=== PATIENT | male | born 1965 | race Caucasian/White ===

== ENCOUNTER 2017-11-03 20:31 | Emergency (ER) | payer SELFPAY ==
[2017-11-03] MEDS ORDERED: DIPHENHYDRAMINE HCL 50 MG/ML VIAL ONE (20:52)
[2017-11-03] MEDS ORDERED: MIDAZOLAM 2 MG/2 ML INJ ONE (20:53)
[2017-11-03] MEDS ORDERED: HALOPERIDOL LACTATE INJ 5 MG/1 ML VIAL ONE (20:53)
[2017-11-03] MEDS ORDERED: DIPHENHYDRAMINE HCL 50 MG/ML VIAL IM ONE (20:56)
[2017-11-03] MEDS ORDERED: HALOPERIDOL LACTATE INJ 5 MG/1 ML VIAL IM ONE (20:56)
[2017-11-03] MEDS ORDERED: MIDAZOLAM 2 MG/2 ML INJ IM ONE (20:56)
--- NOTE | 2017-11-03 21:00 | ER Document Report ---
ED General - General Chief Complaint: Insect Bite Stated Complaint: BUG BITES Time Seen by Provider: 11/03/17 20:48 Cannot obtain history due to: Mentally challenged, Uncooperative Notes: Patient is a 51-year-old male who initially presented with concerns of bug bites but is noted to be extraordinarily paranoid in triage. The patient will not speak to me, is pacing back and forth, tries to lock himself in the bathroom repeatedly. No further history can be obtained. Per records he does have a history of schizophrenia. TRAVEL OUTSIDE OF THE [place] IN LAST 30 DAYS: No Past Medical History - General Information source: Patient Cannot obtain history due to: Mentally challenged, Altered mental status - Social History Smoking Status: Unknown if Ever Smoked Family History: Reviewed & Not Pertinent Review of Systems - Review of Systems -: Yes ROS unobtainable due to patient's medical condition Physical Exam - Vital signs Vitals: Temp Pulse Resp BP Pulse Ox 97.8 F 137 H 24 H 140/91 H 96 11/03/17 20:51 11/03/17 20:51 11/03/17 20:51 11/03/17 20:51 11/03/17 20:51 Interpretation: Hypertensive, Tachycardic Notes: PHYSICAL EXAMINATION: GENERAL: Agitated, pacing, responding to internal stimuli HEAD: Atraumatic, normocephalic. EYES: Pupils equal round and reactive to light, extraocular movements intact, sclera anicteric, conjunctiva are normal. ENT: nares patent, oropharynx clear without exudates. Moderately dry mucous membranes. NECK: Normal range of motion LUNGS: Breath sounds clear to auscultation bilaterally and equal. No wheezes rales or rhonchi. HEART: Regular tachycardia without murmurs ABDOMEN: Soft, nontender EXTREMITIES: no pitting or edema. No cyanosis. NEUROLOGICAL: No focal neurological deficits. Moves all extremities spontaneously PSYCH: Agitated, pacing, picking at himself, clearly responding to internal stimuli SKIN: Warm, mildly diaphoretic, scabbed and open sores from apparently the patient digging at himself Course - Re-evaluation Re-evalutation: 11/03/17 20:56 Patient presents extremely paranoid, somewhat agitated, had to repeatedly be requested to come out of the bathroom where he found him taking in his skin scratching at his face vigorously, unable to be redirected. The patient is clearly is responding to internal stimuli, has obvious paranoid delusions. He is currently a risk to himself and others. I was unable to convince the patient to even return to his room. Unfortunately he will require restraints that we can administer appropriate medications including haloperidol, Versed and Benadryl to calm him and provide safety to both the patient and our staff. An involuntary commitment has been completed. Will obtain standard medical screening labs. Will reassess after sedation medications have been administered. 11/04/17 03:07 Patient has been resting comfortably. Medical screening labs unremarkable. Patient is medically cleared for evaluation and disposition by psychiatry in the morning. - Vital Signs Vital signs: Temp Pulse Resp BP Pulse Ox 97.8 F 137 H 24 H 140/91 H 96 11/03/17 20:51 11/03/17 20:51 11/03/17 20:51 11/03/17 20:51 11/03/17 20:51 - Laboratory Result Diagrams: 11/03/17 22:45 11/03/17 22:45 Laboratory results interpreted by me: 11/03/17 11/03/17 22:45 22:45 WBC 14.8 H Absolute Neutrophils 9.6 H Absolute Monocytes 1.5 H Creatinine 1.27 H Creatine Kinase 774 H Total Protein 8.4 H Salicylates < 1.0 L Acetaminophen < 10 L - EKG Interpretation by Me Additional EKG results interpreted by me: 11/04/17 03:08 Sinus rhythm. Rate 98. No ST elevations or depressions. QTC is 450. Discharge - Discharge Clinical Impression: Paranoid delusion, Agitation Psychosis Qualifiers: Psychosis type: unspecified psychosis type Qualified Code(s): F29 - Unspecified psychosis not due to a substance or known physiological condition Condition: Fair
[2017-11-03 23:10] LABS: ABSOLUTE BASOPHILS # (AUTO) 0.1 10^3/uL (0.0-0.2); ABSOLUTE LYMPHOCYTES (AUTO) 3.6 10^3/uL (0.5-4.7); ABSOLUTE MONOCYTES (AUTO) 1.5 10^3/uL (0.1-1.4); ABSOLUTE NEUT (AUTO) 9.6 10^3/uL (1.7-8.2); BASOPHILS % (AUTO) 0.4 % (0-2); EOSINOPHILS % (AUTO) 0.1 % (0-6); HEMATOCRIT 47.1 % (37.9-51.0); HEMOGLOBIN 15.8 g/dL (13.5-17.0); LYMPHOCYTES % (AUTO) 24.6 % (13-45); MEAN CORPUSCULAR HEMOGLOBIN 28.7 pg (27.0-33.4); MEAN CORPUSCULAR HGB CONC 33.6 g/dL (32.0-36.0); MEAN CORPUSCULAR VOLUME 85 fl (80-97); MONOCYTES % (AUTO) 10.4 % (3-13); PLATELET COUNT 376 10^3/uL (150-450); RED BLOOD COUNT 5.52 10^6/uL (4.35-5.55); RED CELL DISTRIBUTION WIDTH 13.2 % (11.5-14.0); SEGMENTED NEUTROPHILS % (AUTO) 64.5 % (42-78); TOTAL CELLS COUNTED % (AUTO) 100 %; WHITE BLOOD COUNT 14.8 10^3/uL (4.0-10.5)
[2017-11-03 23:16] LABS: ALANINE AMINOTRANSFERASE 50 U/L (21-72); ALKALINE PHOSPHATASE 81 U/L (38-126); ANION GAP 13 (5-19); ASPARTATE AMINO TRANSFERASE 54 U/L (17-59); BILIRUBIN,DIRECT 0.4 mg/dL (0.0-0.4); BLOOD UREA NITROGEN 20 mg/dL (7-20); CALCIUM 9.8 mg/dL (8.4-10.2); CARBON DIOXIDE 26 mmol/L (22-30); CHLORIDE 102 mmol/L (98-107); CREATINE KINASE 774 U/L (55-170); GLUCOSE 81 mg/dL (75-110); SODIUM 141.4 mmol/L (137-145); TOTAL PROTEIN 8.4 g/dL (6.3-8.2)
[2017-11-03 23:17] LABS: ACETAMINOPHEN < 10 ug/mL (10-30); ALCOHOL < 10 mg/dL (NONE DETECTED); SALICYLATE < 1.0 mg/dL (2.0-20.0)
--- NOTE | 2017-11-04 06:54 | EKG REPORT ---
SEVERITY:- NORMAL ECG - SINUS RHYTHM : Confirmed by: Yamilet Heath MD 04-Nov-2017 06:53:45
--- NOTE | 2017-11-04 13:18 | PSYCHOLOGICAL NOTE ---
Psych Note - Psych Note Psych Note: Reason for Consult: psychosis;paranoid Patient is a 51-year-old male who initially presented with concerns of bug bites but is noted to be extraordinarily paranoid in triage. The patient will not speak to me, is pacing back and forth, tries to lock himself in the bathroom repeatedly. No further history can be obtained. Per records he does have a history of schizophrenia. Patient disclosed he called EMS because he was "stressed out." He denies suicidal ideation currently but states that he does suffer from passive suicidal ideation "on and off... but not today." He continued to report that he was diagnosed with schizophrenia in [place] 2-1/2 years ago. He disclosed that he does have substance abuse history with heroin but denies using for the last 8 years. When describing the patient's symptoms of schizophrenia he states he suffers from auditory hallucinations of "just one voice" that he does not recognizes that changes between male and female that he hears inside his head. He reports that he hears his voice sporadically in the last time was yesterday. He reports that he lives in [place] and is here visiting a friend currently. He states that he forgot his medications in [place] and disclosed that he takes Thorazine. Patient reports his outpatient mental health provider is [facility] in [place]. He reports he plans to go back home (to [place]) after being discharged today. Behavior health team contacted patient's pharmacy in [place]. Is noted patient disclosed going to [facility] however right it has been bought out by [employer]. They noted the patient has multiple profiles from getting medication filled from multiple locations. They were able to identify the patient has not had any medication filled since June with [facility] which was Depakote 500 mg and Thorazine 10mg. Patient reports going to [facility] in [place]. Clinician called [facility], [facility] in [place], [place]. . Patient is established with their services. They provided an appointment for the patient on 11/12/2017 at 2pm with Vahid Madera. Patient is alert and orientated to person, place, time and circumstance. Patient denies current suicidal ideation and discloses chronic passive suicidal ideation i.e. no plans means or intent. Patient denies homicidal ideation. Delusions are absent behaviors congruent with an intact reality based presentation i.e. organized and linear thought processes. Eye contact was well- maintained. Conversational speech was within normal rate, tone and prosody. Attention and concentration were good. Insight, judgment, impulse control is fair. 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 Patient came into [facility] ED for bug bites then disclosed to the clinician that he was feeling "stressed out." He reports he came to [place] to visit a friend and plans to return to [place] upon discharge. Patient denies suicidal and homicidal ideation currently and discloses chronic passive suicidal ideation. He is not demonstrating behaviors that indicate he is responding to internal stimuli ie he has organized linear thought processes, makes go eye contact and has normal conversational speech. While patient discloses sobriety for the last 8 years toxicology screening indicates probable amphetamine use. Patient is recommended to follow up with his outpatient mental mynor provider on November 12 at [address] Amos ,was consulted on the care and management of this patient; attending physician is in agreement with recommendations and disposition
[2017-11-04 14:04] LABS: AMORPHOUS SEDIMENT,URINE 1+ /HPF; APPEARANCE,URINE TURBID; BILIRUBIN,URINE NEGATIVE (NEGATIVE); COLOR,URINE YELLOW; GLUCOSE, URINE NEGATIVE (NEGATIVE); KETONES,URINE TRACE mg/dL (NEGATIVE); LEUKOCYTE ESTERASE,URINE NEGATIVE (NEGATIVE); NITRITE,URINE NEGATIVE (NEGATIVE); PROTEIN,URINE 30 mg/dL (NEGATIVE); UROBILINOGEN,URINE NEGATIVE mg/dL (<2.0)
[2017-11-04 14:08] LABS: URINE BARBITURATES SCREEN NEGATIVE; URINE BENZODIAZEPINES SCREEN UNCONFIRMED POSITIVE; URINE COCAINE SCREEN NEGATIVE; URINE MARIJUANA (THC) SCREEN NEGATIVE; URINE METHADONE SCREEN NEGATIVE; URINE PHENCYCLIDINE SCREEN NEGATIVE
--- NOTE | 2017-11-04 14:46 | ER Document Report ---
Doctor's Note Notes: 11/04/17 14:45 Medical rounds: Chart reviewed and patient interviewed briefly. Vital signs are stable. Laboratory values are satisfactory. On examination, the patient is alert, oriented, and cooperative. He denies any somatic complaints. He is stable medically. Psychiatric discharge is pending.
[2017-11-04 14:51] VITALS: BP 127/74
== END 2017-11-04 15:04 | disposition home or self-care (01) ==
LOC: ER 20:31
DX: F22 Delusional disorders (principal); R45.1 Restlessness and agitation; F29 Unspecified psychosis not due to a substance or known physiological condition
CPT/HCPCS: 93005; 99285; 96372; 36415; 80307 ×4; 82550; 85025; 80053; 81001; 93010; J2250; J1200; J1630